=== PATIENT | male | born 1965 | race American Indian/Alaskan Native ===

== ENCOUNTER 2020-10-27 22:09 | Emergency (ER) | payer OTHER ==
[2020-10-27 23:44] LABS: Basophils # (Auto) 0.1 K/mm3 (0.0-0.1); Basophils % (Auto) 0.5 % (0.0-1.8); Eosinophils % (Auto) 0.2 % (0.0-4.3); Hematocrit 44.5 % (35.5-45.6); Hemoglobin 14.9 gm/dl (11.8-15.2); Lymphocytes # (Auto) 1.2 K/mm3 (1.2-5.4); Lymphocytes % (Auto) 8.5 % (13.4-35.0); Mean Corpuscular HGB Conc 34 % (32-34); Mean Corpuscular Volume 88 fl (84-94); Monocytes # (Auto) 0.9 K/mm3 (0.0-0.8); Monocytes % (Auto) 6.5 % (0.0-7.3); Platelet Count 198 K/mm3 (140-440); Red Blood Count 5.06 M/mm3 (3.65-5.03); Red Cell Distribution Width 15.5 % (13.2-15.2)
[2020-10-28 00:01] LABS: Alanine Aminotransferase 12 units/L (7-56); Albumin 4.5 g/dL (3.9-5); BUN/Creatinine Ratio 15; Blood Urea Nitrogen 16 mg/dL (9-20); Calcium 10.8 mg/dL (8.4-10.2); Hemolysis Index 5
[2020-10-28 09:09] LABS: Bilirubin,Urine NEG (Negative); Blood,Urine NEG (Negative); Color,Urine Yellow (Yellow); Mucus,Urine 3+ /HPF; Urobilinogen,Urine < 2.0 mg/dL (<2.0)
--- NOTE | 2020-10-28 11:08 | Emergency Department Report ---
ED General Adult HPI - General Chief complaint: Abdominal Pain Stated complaint: ABDOMINAL PAIN,DEHYDRATED AND PAIN PUI?: No Time Seen by Provider: 10/28/20 11:07 Source: patient, RN notes reviewed Mode of arrival: Ambulatory Limitations: No Limitations - History of Present Illness Initial comments: The patient was evaluated in the emergency department for symptoms described in the history of present illness. He/she was evaluated in the context of the global COVID-19 pandemic, which necessitated consideration that the patient might be at risk for infection with the virus that causes COVID-19. Institutional protocols and algorithms that pertain to the evaluation of patients at risk for COVID-19 are in a state of rapid change based on information released by regulatory bodies including the CDC and federal and state organizations. These policies and algorithms were followed during the patient's care in the emergency department. Please note that these policies, procedures and recommendations changed on a rapid basis. The patient is a 55-year-old gentleman, who is not known to myself previously. Past medical history includes recreational alcohol consumption, cannabis consumption, BMI of 25.4, and questionable hypertension and elevated blood pressure. He presents to the ER with a complaint of episodic upper abdominal pain, nausea, vomiting, inability to tolerate liquid feeds. He reports this happens to him once or twice a year. His pain is upper abdominal, epigastric, has been present for 3 to 4 days, increases with palpation, range of motion, nausea vomiting. He reports that he initially had difficulty eating and drinking, but he was able to drink Ensure earlier on today. He denies testicular pain and urinary symptoms, headache, neck pain, substernal chest pain, and he also indicates that his pain decreases with application of a hot bath and/or hot shower. No EGD that he is aware of. -: Gradual, days(s) Location: abdomen Radiation: abdomen Quality: burning, aching Consistency: intermittent Improves with: rest Worsens with: eating, movement, other (Nausea and vomiting) - Related Data Previous Rx's Medication Instructions Recorded Last Taken Type Acetaminophen [Non-Aspirin Extra 500 mg PO Q6HR PRN #30 tablet 10/28/20 Unknown Rx Strength] Amlodipine Besylate [Norvasc] 5 mg PO QDAY #30 tablet 10/28/20 Unknown Rx Famotidine [Pepcid] 20 mg PO BID #60 tablet 10/28/20 Unknown Rx Metoclopramide [Reglan] 10 mg PO QID PRN #30 tablet 10/28/20 Unknown Rx Potassium Chloride 20 meq PO BID #14 packet 10/28/20 Unknown Rx Allergies Allergy/AdvReac Type Severity Reaction Status Date / Time No Known Allergies Allergy Unverified 02/27/13 20:20 ED Review of Systems ROS: Stated complaint: ABDOMINAL PAIN,DEHYDRATED AND PAIN Other details as noted in HPI Constitutional: other (Denies loss of taste and smell). denies: fever Eyes: denies: eye discharge ENT: denies: epistaxis Respiratory: denies: cough Cardiovascular: denies: chest pain Gastrointestinal: abdominal pain, nausea, vomiting. denies: hematemesis, melena, hematochezia Genitourinary: denies: dysuria, testicular pain Neurological: denies: headache Psychiatric: anxiety Hematological/Lymphatic: denies: easy bleeding ED Past Medical Hx - Past Medical History Previous Medical History?: Yes Hx Hypertension: Yes - Surgical History Past Surgical History?: Yes Additional Surgical History: Umbilical hernia repair as an - Social History Smoking Status: Current Every Day Smoker Substance Use Type: None - Medications Home Medications: Home Medications Medication Instructions Recorded Confirmed Last Taken Type Acetaminophen [Non-Aspirin Extra 500 mg PO Q6HR PRN #30 tablet 10/28/20 Unknown Rx Strength] Amlodipine Besylate [Norvasc] 5 mg PO QDAY #30 tablet 10/28/20 Unknown Rx Famotidine [Pepcid] 20 mg PO BID #60 tablet 10/28/20 Unknown Rx Metoclopramide [Reglan] 10 mg PO QID PRN #30 tablet 10/28/20 Unknown Rx Potassium Chloride 20 meq PO BID #14 packet 10/28/20 Unknown Rx ED Physical Exam - General Limitations: No Limitations General appearance: alert, in no apparent distress - Head Head exam: Present: atraumatic, normocephalic - Eye Eye exam: Present: normal appearance, EOMI. Absent: nystagmus - ENT ENT exam: Present: normal exam, normal orophraynx, mucous membranes moist, normal external ear exam - Neck Neck exam: Present: normal inspection, full ROM. Absent: tenderness, meningismus - Respiratory Respiratory exam: Present: normal lung sounds bilaterally. Absent: respiratory distress, wheezes, rales, rhonchi, stridor, decreased breath sounds - Cardiovascular Cardiovascular Exam: Present: regular rate, normal rhythm, normal heart sounds. Absent: bradycardia, tachycardia, irregular rhythm, systolic murmur, diastolic murmur, rubs, gallop - GI/Abdominal GI/Abdominal exam: Present: soft, tenderness, normal bowel sounds, other (There is epigastric and upper abdominal quadrant tenderness.). Absent: distended, guarding, rebound, rigid, pulsatile mass - Rectal Rectal exam: Present: deferred - Extremities Exam Extremities exam: Present: normal inspection, full ROM, other (2+ pulses noted in the bilateral upper and lower extremities. There is no palpable cord. negative Homans sign. Muscular compartments are soft. The pelvis is stable.). Absent: pedal edema, calf tenderness - Back Exam Back exam: Present: normal inspection, full ROM. Absent: tenderness, CVA tenderness (R), CVA tenderness (L), paraspinal tenderness, vertebral tenderness - Neurological Exam Neurological exam: Present: alert, normal gait, other (No facial droop. Tongue midline. Extraocular movements intact bilaterally. Facial sensation intact to light touch in V1, V2, V3 distribution bilaterally. 5 and a 5 strength in 4 extremities. Sensation intact to light touch in 4 extremities.). Absent: motor sensory deficit - Psychiatric Psychiatric exam: Present: normal affect, normal mood - Skin Skin exam: Present: warm, dry, intact, normal color. Absent: rash ED Course Vital Signs 10/27/20 10/28/20 10/28/20 23:01 11:58 12:00 Temperature 98.9 F Pulse Rate 74 65 77 Respiratory 18 15 12 Rate Blood Pressure 170/113 182/100 O2 Sat by Pulse 94 97 96 Oximetry 10/28/20 10/28/20 10/28/20 12:15 12:31 12:33 Temperature Pulse Rate 77 75 70 Respiratory 22 15 Rate Blood Pressure 181/122 190/98 190/98 O2 Sat by Pulse 96 98 Oximetry 10/28/20 10/28/20 10/28/20 12:45 13:01 13:15 Temperature Pulse Rate 68 73 74 Respiratory 15 15 18 Rate Blood Pressure 191/102 182/103 159/94 O2 Sat by Pulse 96 96 97 Oximetry - Reevaluation(s) Reevaluation #1: 10/28/20 11:34 Differential diagnosis, including but not limited to: GERD, gastritis, hiatal hernia, pancreatitis, cannabinoid hyperemesis, cyclic vomiting syndrome, obstruction, colitis Assessment and plan: 55-year-old gentleman, who was afebrile, with reassuring vital signs, with the exception of elevated blood pressure, not acutely symptomatic from a hypertensive standpoint, please reference the [employer] clinical policy on asymptomatic hypertension, with upper abdominal pain, tenderness, nausea and vomiting, I suspect that this patient has cannabinoid hyperemesis syndrome, with a possible superimposed component of GERD, gastritis, or reflux. Symptoms present for greater than 8 hours, as per the [employer] clinical policy, acute myocardial infarction ruled out with 1 set of troponins as symptoms present for greater than 8 hours. Patient and I had extensive discussion about appropriate diet lifestyle modifications, including avoidance of NSAIDs, heavy and spicy foods, energy drinks, caffeinated beverages, and marijuana products. Laboratory studies were obtained prior to my personal evaluation of this patient, leukocytosis is likely a stress reaction, hypokalemia will be addressed, urinalysis demonstrates ketonuria, minimal pyuria appreciated without bacteriuria, patient denies urinary symptoms. Suggestive and consistent with history of nausea and vomiting. We will treat this patient with antiemetics, IV fluids, potassium supplementation, pain medication, obtain CT scan of the abdomen pelvis, obtain EKG, and will reassess after initial data points. I have discussed this plan of care with the patient, who articulated understanding. Reassess after diagnostics have resulted. 10/28/20 13:33 Feeling improved. Abdomen soft on repeat examination. No active vomiting. Blood pressure improved. CT scan negative for acute findings. Suitable for discharge with outpatient follow-up. 10/28/20 13:36 ED Medical Decision Making - Lab Data Result diagrams: 10/27/20 23:19 10/27/20 23:19 Vital Signs 10/27/20 23:01 Temperature 98.9 F Pulse Rate 74 Respiratory 18 Rate Blood Pressure 170/113 O2 Sat by Pulse 94 Oximetry Lab Results 10/27/20 10/27/20 10/28/20 Range/Units 23:19 23:19 08:45 WBC 13.9 H (4.5-11.0) K/mm3 RBC 5.06 H (3.65-5.03) M/mm3 Hgb 14.9 (11.8-15.2) gm/dl Hct 44.5 (35.5-45.6) % MCV 88 (84-94) fl MCH 30 (28-32) pg MCHC 34 (32-34) % RDW 15.5 H (13.2-15.2) % Plt Count 198 (140-440) K/mm3 Lymph % (Auto) 8.5 L (13.4-35.0) % [place] % (Auto) 6.5 (0.0-7.3) % Eos % (Auto) 0.2 (0.0-4.3) % Baso % (Auto) 0.5 (0.0-1.8) % Lymph # (Auto) 1.2 (1.2-5.4) K/mm3 [place] # (Auto) 0.9 H (0.0-0.8) K/mm3 Eos # (Auto) 0.0 (0.0-0.4) K/mm3 Baso # (Auto) 0.1 (0.0-0.1) K/mm3 Seg Neutrophils % 84.3 H (40.0-70.0) % Seg Neutrophils # 11.7 H (1.8-7.7) K/mm3 Sodium 136 L (137-145) mmol/L Potassium 3.2 L (3.6-5.0) mmol/L Chloride 93.9 L (98-107) mmol/L Carbon Dioxide 30 (22-30) mmol/L Anion Gap 15 mmol/L BUN 16 (9-20) mg/dL Creatinine 1.1 (0.8-1.3) mg/dL Estimated GFR > 60 ml/min BUN/Creatinine Ratio 15 % Glucose 102 H (75-100) mg/dL Calcium 10.8 H (8.4-10.2) mg/dL Total Bilirubin 0.80 (0.1-1.2) mg/dL AST 12 (5-40) units/L ALT 12 (7-56) units/L Alkaline Phosphatase 51 (35-129) units/L Total Protein 7.0 (6.3-8.2) g/dL Albumin 4.5 (3.9-5) g/dL Albumin/Globulin Ratio 1.8 % Urine Color Yellow (Yellow) Urine Turbidity Clear (Clear) Urine pH 5.0 (5.0-7.0) Ur Specific [place] 1.030 (1.003-1.030) Urine Protein 30 mg/dl (Negative) mg/dL Urine Glucose (UA) 50 (Negative) mg/dL Urine Ketones 80 (Negative) mg/dL Urine Blood Neg (Negative) Urine Nitrite Neg (Negative) Urine Bilirubin Neg (Negative) Urine Urobilinogen < 2.0 (<2.0) mg/dL Ur Leukocyte Esterase Neg (Negative) Urine WBC (Auto) 9.0 H (0.0-6.0) /HPF Urine RBC (Auto) 5.0 (0.0-6.0) /HPF U Epithel Cells (Auto) < 1.0 (0-13.0) /HPF Urine Mucus 3+ /HPF - EKG Data -: EKG Interpreted by Dc EKG shows normal: sinus rhythm Rate: normal - EKG Data 10/28/20 12:13 EKG interpreted at 12: 09 Sinus rhythm, normal sinus Gruver/P wave axis, normal axis, left ventricular h ypertrophy, incomplete right bundle branch block, QTC 443 ms. Patient denies chest pain. This is an abnormal EKG. This EKG is not a STEMI. - Radiology Data Radiology results: pending, report reviewed, image reviewed [facility] [address] [place] [address] Cat Scan Report Signed Patient: VANDA CHOUDHURY MR#: [id number] : 1965 Acct:[id number] Age/Sex: 55 / M ADM Date: 10/27/20 Loc: ED Attending Dr: Ordering Physician: TITO MUHAMMAD MD Date of Service: 10/28/20 Procedure(s): CT abdomen pelvis w con Accession Number(s): [id number] cc: TITO MUHAMMAD MD CT ABDOMEN AND PELVIS WITH CONTRAST HISTORY: Epigastric and supraumbilical abdominal pain, naus COMPARISON: None. TECHNIQUE: Axial CT images were obtained through the abdomen and pelvis after 100 cc of IV contrast. Sagittal and coronal reformatted images. All CT scans at this location are performed using CT dose reduction for ALARA by means of automated exposure control. FINDINGS: CT ABDOMEN: Lung Bases: Clear. Liver: There are numerous tiny hypodensities throughout the liver consistent with small cysts or hemangiomas. No underlying parenchymal liver disease is appreciated. Biliary: No significant abnormality. Spleen: No significant abnormality. Unenlarged. Pancreas: No significant abnormality. Adrenals: No significant abnormality. Kidneys: No significant abnormality. Lymphatics: No lymphadenopathy. Vasculature: No significant abnormality. Bowel/Peritoneum: No significant abnormality. No free air. No free fluid. Normal appendix. CT PELVIS: : No significant abnormality. Osseous Structures: Mild lumbar spondylosis. Additional Findings: None IMPRESSION: No acute inflammatory process is appreciated. No clear explanation for epigastric and supraumbilical abdominal pain. Multiple tiny liver cysts or cavernous hemangiomas. Signer Name: Francisco Oliveira Jr, MD Signed: 10/28/2020 1:06 PM Workstation Name: [id number] Transcribed By: TTR Dictated By: FRANCISCO OLIVEIRA JR, MD Electronically Authenticated By: FRANCISCO OLIVEIRA JR, MD Signed Date/Time: 10/28/20 1306 DD/ 1303 Critical care attestation.: If time is entered above; I have spent that time in minutes in the direct care of this critically ill patient, excluding procedure time. ED Disposition Clinical Impression: Epigastric abdominal pain, Elevated blood pressure reading, History of nausea and vomiting, History of marijuana use Disposition: DC-01 TO HOME OR SELFCARE Is pt being admited?: No Does the pt Need Aspirin: No Condition: Good Additional Instructions: Do not take metformin medication, for the next 2 days, if patient takes this medication. Avoid consumption of Motrin, ibuprofen, Naprosyn, Aleve, heavy and spicy foods, tobacco, marijuana, smoke products. Avoid consumption of caffeinated beverages, drink 6 cups of water per day, and consume plenty of fiber, vegetables, and lean protein, avoiding heavy, fried and spicy foods. Please take the pain medication and nausea medication and potassium supplementation as needed and directed. 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 Please return to the emergency room right away with new pain, worsened pain, migration of pain, projectile vomiting, change in mental status, confusion, inability to tolerate liquid feeds, new, worsened or different symptoms not present on initial emergency room evaluation. Suspect that patient symptoms are coming from accommodation of cannabis/marijuana consumption, consumption of heavy and spicy foods, consumption of caffeine containing substances and beverages, and utilization of Motrin, ibuprofen, Naprosyn, Aleve. Patient was found to have elevated blood pressure today. Please take the blood pressure medication as directed. Please follow-up with a primary care doctor within the next month for reevaluation and checkup of hypertension and of elevated blood pressure long-term complications of hypertension and elevated blood pressure include stroke, heart attack, disability, paralysis, permanent loss of quality of life. Prescriptions: Acetaminophen [Non-Aspirin Extra Strength] 500 mg PO Q6HR PRN #30 tablet PRN Reason: Pain , Severe (7-10) Amlodipine Besylate [Norvasc] 5 mg PO QDAY #30 tablet Famotidine [Pepcid] 20 mg PO BID #60 tablet Potassium Chloride 20 meq PO BID #14 packet Metoclopramide [Reglan] 10 mg PO QID PRN #30 tablet PRN Reason: Nausea Referrals: KAYLA BOX MD [Staff Physician] - 3-5 Days KAREN REYES MD [Staff Physician] - 3-5 Days Forms: Work/School Release Form(ED)
[2020-10-28] MEDS ORDERED: MORPHINE 4 MG/1 ML INJ IV ONE (11:15)
[2020-10-28] MEDS ORDERED: FAMOTIDINE 20 MG/2 ML INJ IV ONE (11:15)
[2020-10-28] MEDS ORDERED: ONDANSETRON 4 MG/2 ML INJ IV ONE (11:15)
[2020-10-28] MEDS ORDERED: LACTATED RINGERS 2,000 ML IV ONE (11:15)
[2020-10-28] MEDS ORDERED: POTASSIUM CHLORIDE 10 MEQ 10 MEQ/100 ML BAG IV ONE (11:16)
[2020-10-28] MEDS ORDERED: POTASSIUM CHLORIDE ER 20 MEQ TAB PO ONE (11:16)
[2020-10-28] MEDS ORDERED: amLODIPine 5 MG TAB PO ONE (12:08)
--- NOTE | 2020-10-28 13:10 | Cat Scan Report ---
CT ABDOMEN AND PELVIS WITH CONTRAST HISTORY: Epigastric and supraumbilical abdominal pain, naus COMPARISON: None. TECHNIQUE: Axial CT images were obtained through the abdomen and pelvis after 100 cc of IV contrast. Sagittal and coronal reformatted images. All CT scans at this location are performed using CT dose re duction for ALARA by means of automated exposure control. FINDINGS: CT ABDOMEN: Lung Bases: Clear. Liver: There are numerous tiny hypodensities throughout the liver consistent with small cysts or chacho ngiomas. No underlying parenchymal liver disease is appreciated. Biliary: No significant abnormality. Spleen: No significant abnormality. Unenlarged. Pancreas: No significant abnormality. Adrenals: No significant abnormality. Kidneys: No significant abnormality. Lymphatics: No lymphadenopathy. Vasculature: No significant abnormality. Bowel/Peritoneum: No significant abnormality. No free air. No free fluid. Normal appendix. CT PELVIS: : No significant abnormality. Osseous Structures: Mild lumbar spondylosis. Additional Findings: None IMPRESSION: No acute inflammatory process is appreciated. No clear explanation for epigastric and supraumbilical abdominal pain. Multiple tiny liver cysts or cavernous hemangiomas. Signer Name: Francisco Oliveira Jr, MD Signed: 10/28/2020 1:06 PM Workstation Name: [id number]
[2020-10-28 14:42] VITALS: BP 167/82
--- NOTE | 2020-10-31 10:34 | Electrocardiograph Report ---
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
== END 2020-10-28 14:34 | disposition home or self-care (01) ==
LOC: ED 22:09
DX: R10.13 Epigastric pain (principal); R03.0 Elevated blood-pressure reading, without diagnosis of hypertension; I10 Essential (primary) hypertension; F17.200 Nicotine dependence, unspecified, uncomplicated; Z79.899 Other long term (current) drug therapy; Z98.890 Other specified postprocedural states; Z87.898 Personal history of other specified conditions
CPT/HCPCS: 36415; 74177; 80053; 81001; 82550; 83690; 83735; 84484; 85025; 87086; 93005; 96361; 96374; 96375; 99284; J2270; J2405; J3480; J7120; Q9967